=== PATIENT | male | born 1970 | race Two or more races ===

== ENCOUNTER 2018-09-27 23:30 | Inpatient (IN) | payer SELFPAY ==
[~2018-09-27] VITALS: Ht 167.6 cm; Wt 81.6 kg
[2018-09-28 00:10] VITALS: BP 179/96
--- NOTE | 2018-09-28 00:10 | NUR ---
ER Nurse Note: Pt came from home c/o right foot pain for three weeks. Pt stated he burned his foot the heater and did not realize his foot was being injured. Pt did not want to go to the hospital to seek help. Pt a&ox4, VSS , no signs of distress. Pt right toes are black, right foot swollen, open wound on back of right foot near the 5th toe. Pt walks with limp, does not complain of pain. ERMD at pt side; will continue to [facility].
[2018-09-28] MEDS ORDERED: Vancomycin 1.5gm/D5W 275ml 250 ML IVPB ONE (00:15)
[2018-09-28] MEDS ORDERED: Piperacillin/Tazobactam 3.375 GM in NS 110 ML IVPB ONE (00:15)
[2018-09-28 00:40] LABS: HEMATOCRIT 41.2 % (42.0-52.0); HEMOGLOBIN 13.7 G/DL (14.2-18.0); MEAN CORPUSCULAR VOLUME 86 FL (80-99); PLATELET COUNT 268 K/UL (150-450); RED BLOOD COUNT 4.81 M/UL (4.70-6.10); RED CELL DISTRIBUTION WIDTH 11.6 % (11.6-14.8); WHITE BLOOD COUNT 19.2 K/UL (4.8-10.8)
[2018-09-28 01:00] LABS: ANION GAP 8 mmol/L (5-15); BLOOD UREA NITROGEN 20 mg/dL (7-18); CALCIUM 9.2 MG/DL (8.5-10.1); CARBON DIOXIDE 28 MMOL/L (21-32); CHLORIDE 94 MMOL/L (98-107); CREATININE 1.2 MG/DL (0.55-1.30); POTASSIUM 4.3 MMOL/L (3.5-5.1); SODIUM 130 MMOL/L (136-145)
--- NOTE | 2018-09-28 01:12 | Emergency Room Report ---
History of Present Illness General Chief Complaint: General Complaint Source: Patient Present Illness HPI Patient presents with complaints of worsening redness and injury to the right foot Patient reports that about 3 weeks ago there was an episode where his socks had gotten wet at work he essentially had placed his foot over a heater After that he noticed that they have been a development of a blister formation on the right lateral foot Since then there has been further redness and discharge developing over the foot There is discoloration and black discoloration to the small toe Patient reports that last week symptoms continue to worsen One of his friends works at this facility and he was requested to come to the emergency room Denies any headache denies any chest pain denies any fevers or chills Allergies: Coded Allergies: No Known Allergies (Unverified , 09/28/18) Patient History Past Medical History: see triage record Pertinent Family History: none Reviewed Nursing Documentation: PMH: Agreed; PSxH: Agreed Nursing Documentation-PMH Past Medical History: No History, Except For Hx Diabetes: Yes Review of Systems All Other Systems: negative except mentioned in HPI Physical Exam Vital Signs Date Time Temp Pulse Resp B/P (MAP) Pulse Ox O2 Delivery O2 Flow Rate FiO2 09/27/18 23:56 98.1 91 16 179/96 97 Room Air Sp02 EP Interpretation: reviewed, normal General Appearance: well appearing, no apparent distress Head: normocephalic, atraumatic Eyes: bilateral eye PERRL, bilateral eye EOMI ENT: hearing grossly normal, normal pharynx, TMs + canals normal, uvula midline Neck: supple Respiratory: lungs clear Cardiovascular #1: regular rate, rhythm Gastrointestinal: non tender, soft Musculoskeletal: swelling - Significant changes to the right foot involving increased erythema diffusely, there is break in the skin laterally on the small toe region is also black eschar formation there is an open wound in that area Neurologic: alert, oriented x3, responsive Skin: other - Significant changes concerning findings, open wound with discharge and erythema, black formation to the lateral small toe Medical Decision Making Diagnostic Impression: Primary Impression: Cellulitis Additional Impressions: Open fracture Sepsis ER Course Patient presents with a critical appearing foot The evaluation of the foot is concerning areas of black eschar formation areas of open wounds with drainage Aggressive hydration and antibiotics initiated x-ray also reveals evidence of fracture Patient requires inpatient care and further podiatry consultation , Labs Test 09/28/18 00:20 White Blood Count 19.2 K/UL (4.8-10.8) Red Blood Count 4.81 M/UL (4.70-6.10) Hemoglobin 13.7 G/DL (14.2-18.0) Hematocrit 41.2 % (42.0-52.0) Mean Corpuscular Volume 86 FL (80-99) Mean Corpuscular Hemoglobin 28.6 PG (27.0-31.0) Mean Corpuscular Hemoglobin Concent 33.3 G/DL (32.0-36.0) Red Cell Distribution Width 11.6 % (11.6-14.8) Platelet Count 268 K/UL (150-450) Mean Platelet Volume 9.5 FL (6.5-10.1) Neutrophils (%) (Auto) % (45.0-75.0) Lymphocytes (%) (Auto) % (20.0-45.0) Monocytes (%) (Auto) % (1.0-10.0) Eosinophils (%) (Auto) % (0.0-3.0) Basophils (%) (Auto) % (0.0-2.0) Differential Total Cells Counted 100 Neutrophils % (Manual) 90 % (45-75) Lymphocytes % (Manual) 6 % (20-45) Monocytes % (Manual) 4 % (1-10) Eosinophils % (Manual) 0 % (0-3) Basophils % (Manual) 0 % (0-2) Band Neutrophils 0 % (0-8) Platelet Estimate Adequate Platelet Morphology Normal Red Blood Cell Morphology Normal Sodium Level 130 MMOL/L (136-145) Potassium Level 4.3 MMOL/L (3.5-5.1) Chloride Level 94 MMOL/L (98-107) Carbon Dioxide Level 28 MMOL/L (21-32) Anion Gap 8 mmol/L (5-15) Blood Urea Nitrogen 20 mg/dL (7-18) Creatinine 1.2 MG/DL (0.55-1.30) Estimat Glomerular Filtration Rate > 60 mL/min (>60) Glucose Level 390 MG/DL (74-106) Lactic Acid Level 1.40 mmol/L (0.4-2.0) Calcium Level 9.2 MG/DL (8.5-10.1) Total Bilirubin 0.5 MG/DL (0.2-1.0) Aspartate Amino Transf (AST/SGOT) 12 U/L (15-37) Alanine Aminotransferase (ALT/SGPT) 18 U/L (12-78) Alkaline Phosphatase 139 U/L (46-116) Total Creatine Kinase 24 U/L (26-308) Creatine Kinase MB 0.8 NG/ML (0.0-3.6) Creatine Kinase MB Relative Index 3.3 Troponin I 0.000 ng/mL (0.000-0.056) Total Protein 9.5 G/DL (6.4-8.2) Albumin 2.8 G/DL (3.4-5.0) Globulin 6.7 g/dL Albumin/Globulin Ratio 0.4 (1.0-2.7) Other X-Ray Diagnostic Results Other X-Ray Diagnostic Results : X-Ray ordered: Right foot # of Views/Limited Vs Complete: 3 View Indication: Pain EP Interpretation: Yes Interpretation: other - Acute fracture proximal fifth phalanx, comminuted in appearance, soft tissue swelling Impression: Other - Acute fracture as noted Electronically Signed by: Bassam Charles DO Last Vital Signs Date Time Temp Pulse Resp B/P (MAP) Pulse Ox O2 Delivery O2 Flow Rate FiO2 09/27/18 23:56 98.1 91 16 179/96 97 Room Air Status: improved Disposition: ADMITTED INPATIENT Condition: Serious Scripts Amoxicillin/Potassium Clav 875-125* (AUGMENTIN 875-125 TABLET*) 1 Each Tablet 1 TAB ORAL TWICE A DAY for 10 Days, #20 TAB Prov: Montana Regalado MD 09/29/18 Metformin Hcl* (GLUCOPHAGE*) 500 Mg Tablet 1000 MG ORAL BIAC for 30 Days, TAB Prov: Montana Regalado MD 09/29/18 Glipizide* (GLIPIZIDE*) 5 Mg Tablet 20 MG ORAL BIAC for 30 Days, #60 TAB Prov: Montana Regalado MD 09/29/18 Referrals: NOT CHOSEN NAZ/,REFERRING (PCP) Bassam Charles DO Sep 28, 2018 01:12
[2018-09-28 01:13] LABS: ALANINE AMINOTRANSFERASE 18 U/L (12-78); ALBUMIN 2.8 G/DL (3.4-5.0); ALBUMIN/GLOBULIN RATIO 0.4 (1.0-2.7); ALKALINE PHOSPHATASE 139 U/L (46-116); ASPARTATE AMINO TRANSFERASE 12 U/L (15-37); BILIRUBIN,TOTAL 0.5 MG/DL (0.2-1.0); CKMB 0.8 NG/ML (0.0-3.6); CREATINE KINASE 24 U/L (26-308)
--- NOTE | 2018-09-28 01:48 | Diagnostic Imaging Report ---
EXAM: XR Right Foot Complete, 2 Views CLINICAL HISTORY: PAIN TECHNIQUE: Frontal and lateral views of the right foot. COMPARISON: No relevant prior studies available. FINDINGS: Bones/joints: Acute comminuted fifth proximal phalanx fracture. No dislocation. Soft tissues: Diffuse soft tissue swelling. No radiopaque foreign body. IMPRESSION: Acute comminuted fifth proximal phalanx fracture.
[2018-09-28 03:29] VITALS: BP 152/84
[2018-09-28] MEDS ORDERED: Insulin Human Regular 100units/ml 3ml IV ONE (03:30)
--- NOTE | 2018-09-28 03:30 | NUR ---
ER Nurse Note: Pt a&ox4, VSS, no signs of distress. BS checked; MD notifed, insulin ordered with fluids. Pt tolerated well. Awaiting packet for transfer. Will continue to monitor.
--- NOTE | 2018-09-28 04:00 | NUR ---
ER Nurse Note: Report given to RANGEL Lopez in [place] for continuity of care. Pt a&ox4, VSS, no signs of distress. Pt left with all belongnigs. Photos taken of wound.
--- NOTE | 2018-09-28 04:51 | NUR ---
NURSE NOTES: Received report from Megan MULTANI. Pt A&O x 4, laying semi-fowlers in bed. No signs of pain or distress. IV site dry & intact. Right foot reddened w/ swelling, white-yellow discharge, & black eschar. Pt oriented to room, call light in reach, bed in lowest position, side rails up x2. Will continue to monitor pt. MD notified on pt arrival, orders placed.
[2018-09-28] MEDS ORDERED: HYDROcodone/Acetamin 10/325 tab ORAL PRN (05:00)
[2018-09-28] MEDS ORDERED: Norco 5mg/325mg tab ORAL PRN (05:00)
[2018-09-28] MEDS: NovoLOG Insulin Flexpen SUBQ SCH ×4 (07:42→21:32)
[2018-09-28 08:00] VITALS: BP 147/83
--- NOTE | 2018-09-28 08:11 | NUR ---
HAND-OFF: Report given to Fabiola MULTANI. Pt is stable.
--- NOTE | 2018-09-28 08:12 | NUR ---
NURSE NOTES: Received patient in bed, awake, alert and oriented x4. Not in acute distress. Blake any pain or discomfort. right foot open wound noted with swollen foot. elevated leg. IV intact, no s/s of infiltration. Bed is in lowest position and locked. Call light and personnel items within reach. Will continue plan of care.
[2018-09-28] MEDS: Piperacillin/Tazobactam 3.375 GM in NS 110 ML IVPB SCH ×2 (09:40→17:12)
[2018-09-28] MEDS: Heparin 5000 units/ml inj SUBQ SCH ×2 (09:41→21:32)
[2018-09-28 12:00] VITALS: BP 163/83
--- NOTE | 2018-09-28 13:00 | NUR ---
NURSE NOTES: Patient was seen by Dr. Regalado and RN relayed elevated blood pressure. Dr. Regalado said " I will take care of it."
[2018-09-28] MEDS: Vancomycin 750mg/NS 275ml IVPB SCH ×2 (14:25)
[2018-09-28 16:00] VITALS: BP 158/87
--- NOTE | 2018-09-28 17:48 | NUR ---
NURSE NOTES: RN received orders from Dr. Regalado and order read back and carried out.
[2018-09-28] MEDS: GlipiZIDE 5mg tab ORAL SCH (18:18)
--- NOTE | 2018-09-28 18:20 | NUR ---
NURSE NOTES: RN explained how to check the blood sugar and showed him and patient demonstrated. Will endorse to the next shift to teach how to inject insulin.
--- NOTE | 2018-09-28 19:15 | History and Physical Report ---
DATE OF ADMISSION: 09/28/2018 REASON FOR HOSPITALIZATION: Burning gangrene of the foot. HISTORY OF PRESENT ILLNESS: The patient apparently exposes right foot with wet socks and pressed a heater and has now developed a blister, burn, and cellulitis of the right foot. He has generally been in good health. Apparently, he has a history of diabetes, not taking any medications for this recently and no other health problems. SURGERIES: None. HABITS: He is a nondrinker and nonsmoker. SOCIAL HISTORY: He works as a tooling mechanic. SYSTEM REVIEW: HEAD, EYES, EARS, NOSE, THROAT: The patient's hearing is good. ENDOCRINE: No diabetes or thyroid disease. PULMONARY: No asthma, TB, or chronic cough. CARDIAC: No angina or [place]. GASTROINTESTINAL: No GI bleeding or ulcers. GENITOURINARY: No dysuria or hematuria. NEUROLOGIC: No CVA or syncope. PHYSICAL EXAMINATION: VITAL SIGNS: Temperature 99.3, pulse 94, respirations 19, and blood pressure 163/83. HEAD, EYES, EARS, NOSE, THROAT: Sclerae are nonicteric. Ocular motions intact in all directions. Oral mucosa moist. NECK: No adenopathy or thyroid enlargement. LUNGS: Clear. HEART: Rhythm is regular. No murmur. ABDOMEN: Soft without organomegaly or masses. EXTREMITIES: Show edema on the foot with cellulitis. There appears to be gangrene of the fifth and possible fourth toe. There is 2+/4+ dorsalis pedis pulses. LABORATORY DATA: White count is 19.2. Electrolytes normal. Glucose 390. IMPRESSION: 1. Cellulitis and possible gangrene, right foot. 2. Diabetes, uncontrolled. 3. Burn. PLAN: Broad-spectrum antibiotics and management of diabetes. Condition is concerning for possible loss of limb. Montana Regalado M.D. DR: GARCÍA JOB#: [id number] CC:
--- NOTE | 2018-09-28 19:30 | NUR ---
HAND-OFF: Report given to Arsema and endorsed to teach how to inject insulin.
--- NOTE | 2018-09-28 19:49 | NUR ---
NURSE NOTES: Received report from Fabiola MULTANI. Pt A&O x4, laying semi-fowlers in bed. No signs of pain or distress. Pt on RA. IV site dry & intact. Dressing on right foot C/D/I. Family at bedside. Call light in reach, bed in lowest position, side rails up x2. Will continue to monitor pt.
[2018-09-28 20:00] VITALS: BP 164/95
[2018-09-28 23:34] LABS: APPEARANCE,URINE CLEAR; BILIRUBIN, URINE NEGATIVE (NEGATIVE); GLUCOSE, URINE (UA) 4+ (NEGATIVE); KETONES,URINE NEGATIVE (NEGATIVE); LEUKOCYTE ESTERASE ,URINE NEGATIVE (NEGATIVE); NITRITE,URINE NEGATIVE (NEGATIVE); PH,URINE 5 (4.5-8.0); PROTEIN,URINE 3+ (NEGATIVE); UROBILINOGEN,URINE NORMAL MG/DL (0.0-1.0)
[2018-09-29] VITALS (7 sets, daily range): BP systolic 111–169; BP diastolic 67–95
[2018-09-29 00:19] LABS: COLOR,URINE YELLOW
[2018-09-29] MEDS: Piperacillin/Tazobactam 3.375 GM in NS 110 ML IVPB SCH ×3 (01:00→16:48)
[2018-09-29] MEDS: Vancomycin 750mg/NS 275ml IVPB SCH ×2 (01:44)
[2018-09-29] MEDS: NovoLOG Insulin Flexpen SUBQ SCH ×4 (06:30→20:36)
[2018-09-29 07:14] LABS: ANION GAP 8 mmol/L (5-15); BLOOD UREA NITROGEN 15 mg/dL (7-18); CALCIUM 8.5 MG/DL (8.5-10.1); CARBON DIOXIDE 26 MMOL/L (21-32); CHLORIDE 101 MMOL/L (98-107); CREATININE 1.1 MG/DL (0.55-1.30); POTASSIUM 3.5 MMOL/L (3.5-5.1); SODIUM 135 MMOL/L (136-145)
[2018-09-29] MEDS: metFORMIN 500mg tab ORAL SCH ×2 (07:25→16:40)
[2018-09-29] MEDS: GlipiZIDE 5mg tab ORAL SCH ×2 (07:26→16:39)
--- NOTE | 2018-09-29 07:29 | NUR ---
HAND-OFF: Report given to Joan MULTANI. Pt is stable.
--- NOTE | 2018-09-29 07:34 | NUR ---
NURSE NOTES: Received patient in bed, resting and alert X4. Patient denies pain. No signs of respiratory distress. IV intact. Dressing dry and intact. Bed in lowest position, call light within reach. Will continue to monitor.
[2018-09-29] MEDS: Heparin 5000 units/ml inj SUBQ SCH ×2 (08:28→20:35)
--- NOTE | 2018-09-29 09:18 | NUR ---
REHAB MED PT NOTE CONSULT RECEIVED, JS COMPLTED, PATIENT WILL BENEFIT FROM SKILLED PT DURING STAY FOR RETURN TO [facility]. RECOMMEND HOME AT [place] WITH SPC, SPC GIVEN. PLAN OF CARE INITIATED. JERRY ANNE PT DPT Addendum: 09/29/18 at 0918 by JERRY ANNE PT Amended: Links added.
--- NOTE | 2018-09-29 10:00 | NUR ---
NURSE NOTES: Post op shoe and cane provided to patient by physical therapy. Educated patient on keeping pressure off R foot.
--- NOTE | 2018-09-29 11:00 | NUR ---
NURSE NOTES: Wound care completed; daughter at bedside. Demonstrated and explained wound care orders, signs/symptoms of worsening infection, and proper hand sanitation. Daughter able to assist in wound care and asked questions, showed high interest in learning wound care. Stated she is available during day to perform wound care.
--- NOTE | 2018-09-29 11:45 | NUR ---
NURSE NOTES: Used teach back method during diabetic teaching. Showed patient and family techniques for blood sugar check. Patient able to check own sugar and administer insulin. Showed some hesitation at first but able to perform task with proper teaching and guidance. Daughter at bedside and included in teaching.
--- NOTE | 2018-09-29 14:48 | NUR ---
Social Service Note KEM met with patient and patient's dgt at bedside. Patient with no prior history of medical intervention. Patient not seen at a clinic. Patient states he was doing home remedies to care for foot. Patient will be screened for medi-pranay, however highly likely medi-pranay will be restricted as patient is non-documented. [facility] clinics will need to screen patient for financials in an urgent care location prior to being seen by MD in clinic. KEM printed out a list of [facility] with urgent care hours. List provided to primary nurse. KEM discussed with primary nurse caregiver training on wound care. Dgt states herself and her brother will be able to provide support. SW discussed clinic follow up with dgt. Patient pending screen by medi-pranay [facility]. Will monitor and be available as needed.
[2018-09-29] MEDS ORDERED: Vancomycin 1gm/D5W 275ml IVPB SCH ×2 (15:00)
[2018-09-29] MEDS ORDERED: GLUCOPHAGE500 MG ORAL (18:02)
[2018-09-29] MEDS ORDERED: GLIPIZIDE5 MG ORAL (18:02)
[2018-09-29] MEDS ORDERED: AUGMENTIN 875-1 EAC1 ORAL (18:02)
--- NOTE | 2018-09-29 19:31 | NUR ---
HAND-OFF: Report given to RANGEL Dalal.
--- NOTE | 2018-09-29 19:31 | NUR ---
NURSE NOTES:Patient received from Joan Nieves RFA g#20 IVF Infusing well . patient denies any pain .at this time . no sob/ no n/v noted patient at bedside . right foot dressing C/D/I . Call light within reach . bed in low position at all times . will continue to monitor patient .
[2018-09-29] MEDS ORDERED: NS 275ml ONE (19:59)
[2018-09-29] MEDS ORDERED: Tubing IV Secondary IV ONE (19:59)
--- NOTE | 2018-09-29 21:00 | NUR ---
NURSE NOTES:Patient to be discharged today. vss afebrile . patient denies any pain at this time . no sob/ no n/v noted . reviewed discharge instructions to patient and . patient verbalize proper use of medications RFA g#20 H/L AND arm band removed . prescription ,Patient personal belongings ,patient supplies right foot dressing given to patient and patient instructed after d/c he needs to go to [facility] to get meds. per DR Ivan per orders .patient written discharge instructions to patient and . patient discharge home at 2100 pm in private car. Addendum: 09/29/18 at 2217 by LISA PAPPAS LVN Patient and right foot dressing demonstrated and explained wound care . sign and symptoms of worsening infection and proper hand sanitation . able to assist in wound care . should high interest in wound care . post op shoes was provided as per orders .
--- NOTE | 2018-09-29 21:15 | Discharge Summary ---
DATE OF ADMISSION: 09/28/2018 DATE OF DISCHARGE: 09/29/2018 PERTINENT HISTORY: The patient is a 48-year-old man with diabetes, not on medication, apparently exposed his right foot with wet socks on a heater and developed some blisters, burn, and cellulitis. PERTINENT PHYSICAL FINDINGS: Normal except for right foot, which is swollen with some cellulitis and some dry gangrene on the fifth and possible fourth toe. COURSE IN THE HOSPITAL: The patient was started on broad-spectrum antibiotics and a diabetic regimen. He had no fever or chills. Glucose went from 390 to 116. There was no clinical sepsis. Social service saw the patient and gave him referrals to [facility] where he can seek further medical care. He was discharged home in stable condition with instructions to follow up with a [facility] within the next few days. FINAL DIAGNOSES: 1. Cellulitis and gangrene of right foot. 2. Adult-onset diabetes with hyperglycemia and neuropathy. DISCHARGE DISPOSITION: On a diabetic diet. Metformin 1000 mg b.i.d., glipizide 20 mg b.i.d., and Augmentin 875 b.i.d. Follow-up within the next few days at the [facility]. Montana Regalado M.D. DR: UCHE JOB#: [id number] CC:
--- NOTE | 2018-09-29 21:42 | Diagnostic Imaging Report ---
APPROVED REPORT CPT Code: 86311 Symptoms Non-healing Ulcer : BILATERAL: Common femoral artery waveform analysis is within normal limits at rest. Color flow duplex sonography reveals patency of the superficial femoral, popliteal, and tibial arteries, there is no evidence of stenosis or occlusion within these segments. Doppler tibial artery waveform analysis is within normal limits, bilaterally. There is no evidence of significant arterial occlusive disease, bilaterally.
== END 2018-09-29 21:00 | disposition home or self-care (01) | DRG 300 ==
LOC: EMR 23:59 → 3E 09-28 01:02 → EDBEDREQ 09-28 03:05
DX: E11.52 Type 2 diabetes mellitus with diabetic peripheral angiopathy with gangrene (principal); L03.115 Cellulitis of right lower limb; I96 Gangrene, not elsewhere classified; E11.65 Type 2 diabetes mellitus with hyperglycemia; T25.021S Burn of unspecified degree of right foot, sequela; T79.8XXS Other early complications of trauma, sequela; W29 Contact with other powered hand tools and household machinery
CPT/HCPCS: 36415; 80048; 80053; 80202; 81001; 82043; 82550; 82553; 82962; 83605; 84484; 85007; 85025; 87040; 87070; 87205; 93925; 99285; J1815